=== PATIENT | female | born 1965 | race Caucasian/White ===

== ENCOUNTER → 2016-12-26 | Day surgery (SDC) | payer MEDICARE ==
[2016-12-24 14:04] LABS: HCT 39.2 % (37.0-47.0); HGB 12.8 g/dl (12.5-16.0); MCH 34.6 pg (25.0-31.0); MCHC 32.7 g/dL (32.0-36.0); MCV 105.9 fL (78.0-100.0); MPV 10.9 fL (6.0-9.5); RBC 3.7 M/uL (4.20-5.40); RDW 13.8 % (11.5-14.0); WBC 16.1 K/uL (4.0-10.5)
[2016-12-24 14:20] LABS: ALBUMIN 3.7 g/dL (3.5-5.0); BILIRUBIN - TOTAL 0.5 mg/dL (0.1-1.0); CREATININE 0.7 mg/dL (0.5-1.0); GLOBULIN (CALCULATION) 2.5 g/dL (2.2-4.2); POTASSIUM 4.1 mmol/L (3.5-5.1); TOTAL PROTEIN 6.2 g/dL (6.4-8.3)
== END | disposition home or self-care (01) ==
LOC: FAS 09:03
PROVIDERS: Orthopaedic Surgery
DX: M13.852 Other specified arthritis, left hip (principal); M13.851 Other specified arthritis, right hip; M87.852 Other osteonecrosis, left femur; M87.851 Other osteonecrosis, right femur; I48.91 Unspecified atrial fibrillation; I11.0 Hypertensive heart disease with heart failure; I50.9 Heart failure, unspecified; M51.26 Other intervertebral disc displacement, lumbar region; K21.9 Gastro-esophageal reflux disease without esophagitis; K25.9 Gastric ulcer, unspecified as acute or chronic, without hemorrhage or perforation; M10.9 Gout, unspecified; F17.210 Nicotine dependence, cigarettes, uncomplicated; Z88.2 Allergy status to sulfonamides; Z88.5 Allergy status to narcotic agent; Z88.8 Allergy status to other drugs, medicaments and biological substances; Z79.899 Other long term (current) drug therapy; Z79.52 Long term (current) use of systemic steroids; Z79.891 Long term (current) use of opiate analgesic; Z90.49 Acquired absence of other specified parts of digestive tract; Z90.710 Acquired absence of both cervix and uterus; Z98.890 Other specified postprocedural states
CPT/HCPCS: 36415; 71020; 76000; 80053; 93005; J1040; J2270; J2704; J3010; Q9962